=== PATIENT | female | born 1975 | race Caucasian/White ===

== ENCOUNTER 2018-03-03 20:31 | Emergency (ER) | payer OTHER ==
--- NOTE | 2018-03-03 20:46 | ED ---
Extremity Problem HPI - General Chief complaint: Extremity Problem,Nontraumatic Stated complaint: left leg swelling Time Seen by Provider: 03/03/18 20:38 Source: patient Mode of arrival: ambulatory Limitations: no limitations - History of Present Illness Initial comments: 42-year-old female patient presents to the emergency department today for evaluation of left lower extremity swelling and tingling. Patient states that symptoms started last night. Patient denies any known injury to the leg. Denies any pain. She denies any recent car rides or trips. Denies any use of oral contraceptives. States that her mother does have a history of blood clots in her legs. Patient denies any recent rash, fever, chills, shortness breath, chest pain, palpitations, abdominal pain, nausea, vomiting, diarrhea, constipation, back pain, numbness, tingling, dizziness, weakness, hematuria, dysuria, urinary urgency, urinary frequency, headache, visual changes, or any other complaints. - Related Data Home Medications Medication Instructions Recorded Confirmed Ibuprofen [Motrin] 800 mg PO TID PRN 03/03/18 03/03/18 Previous Rx's Medication Instructions Recorded Albuterol Inhaler [Ventolin Hfa 1 - 2 puff INHALATION Q4-6H PRN #1 05/05/15 Inhaler] inhaler Allergies Allergy/AdvReac Type Severity Reaction Status Date / Time No Known Allergies Allergy Verified 03/03/18 21:22 Review of Systems ROS Statement: Those systems with pertinent positive or pertinent negative responses have been documented in the HPI. ROS Other: All systems not noted in ROS Statement are negative. Past Medical History Past Medical History: No Reported History History of Any Multi-Drug Resistant Organisms: None Reported Past Surgical History: No Surgical Hx Reported Past Psychological History: No Psychological Hx Reported Smoking Status: Current every day smoker Past Alcohol Use History: Rare Past Drug Use History: None Reported General Exam Limitations: no limitations General appearance: alert, in no apparent distress Eye exam: Present: normal appearance, PERRL, EOMI. Absent: scleral icterus, conjunctival injection, periorbital swelling ENT exam: Present: normal exam, normal oropharynx, mucous membranes moist Extremities exam: Present: normal inspection, full ROM, normal capillary refill , other (Left lower extremity is pink, warm, and dry. Cap refills less than 3 seconds. Pedal and posttibial pulses 2+ and equal bilaterally. Patient may have a slight swelling to the left leg, nonpitting.). Absent: tenderness, pedal edema, joint swelling, calf tenderness Course Vital Signs 03/03/18 20:32 Temperature 97.4 F L Pulse Rate 89 Respiratory 20 Rate Blood Pressure 174/95 O2 Sat by Pulse 98 Oximetry Medical Decision Making - Medical Decision Making 42-year-old female patient presented to the emergency department today for evaluation of left lower extremity swelling and tingling. Physical examination was unremarkable. Patient had good distal pulses and neurovascular status was intact. Ultrasound of the left lower trauma he was obtained and showed no evidence for DVT. Did discuss findings with the patient. She does have an MRI of the leg scheduled by her orthopedic physician. Return parameters discussed in detail. She verbalizes understanding and agreed with this plan. - Radiology Data Radiology results: report reviewed, image reviewed Ultrasound of the left lower extremity was obtained. Report was reviewed in its entirety. Impression by Dr. Shanel Jama shows negative for DVT, left lower extremity. Disposition Clinical Impression: Left leg swelling Disposition: HOME SELF-CARE Condition: Good Instructions: Leg Edema (ED) Is patient prescribed a controlled substance at d/c from ED?: No Referrals: Cristian Andrew MD [Primary Care Provider] - 1-2 days Time of Disposition: 22:32
--- NOTE | 2018-03-03 22:25 | US ---
EXAMINATION TYPE: US venous doppler duplex LE LT DATE OF EXAM: 03/03/2018 10:10 PM COMPARISON: US 2016 CLINICAL HISTORY: Pain. Left leg pain and tingling SIDE PERFORMED: Left TECHNIQUE: The lower extremity deep venous system is examined utilizing real time linear array sonog lucas with graded compression, doppler sonography and color-flow sonography. VESSELS IMAGED: External Iliac Vein (EIV) Common Femoral Vein Deep Femoral Vein Greater Saphenous Vein * Femoral Vein Popliteal Vein Small Saphenous Vein * Proximal Calf Veins (* superficial vessels) FINDINGS: Grayscale, color doppler, spectral doppler imaging performed of the deep veins of the lowe r extremities. There is normal flow, compressibility, vascular waveforms. IMPRESSION: NEGATIVE FOR DVT, LEFT LOWER EXTREMITY.
[2018-03-03 22:42] VITALS: BP 168/108; PULSE 73; RESP 18; TEMP 98
== END 2018-03-03 22:42 | disposition home or self-care (01) ==
LOC: EC 20:31
DX: M79.89 Other specified soft tissue disorders (principal); R20.2 Paresthesia of skin; F17.200 Nicotine dependence, unspecified, uncomplicated
CPT/HCPCS: 99283

== ENCOUNTER 2018-05-02 08:57 | Emergency (ER) | payer OTHER ==
--- NOTE | 2018-05-02 09:16 | ED ---
General Adult HPI - General Chief complaint: Extremity Problem,Nontraumatic Stated complaint: lump on rt leg Time Seen by Provider: 05/02/18 09:11 Source: patient, RN notes reviewed Mode of arrival: ambulatory Limitations: no limitations - History of Present Illness Initial comments: Patient for 43-year-old female presented to the emergency room today with a chief complaint of right leg pain that she noticed this morning after getting out of the shower. She states that there is an area to the medial aspect of the right calf that is warm. She does admit that she's had a blood clot in a varicose vein in the past. She states there is local tenderness. Denies any injury. Denies any other complaints or symptoms. Patient denies any recent fever, chills, shortness of breath, chest pain, back pain, abdominal pain, nausea or vomiting, numbness or tingling, headaches or visual changes, or any other complaints. - Related Data Home Medications Medication Instructions Recorded Confirmed Ibuprofen [Motrin] 800 mg PO TID PRN 03/03/18 05/02/18 Allergies Allergy/AdvReac Type Severity Reaction Status Date / Time No Known Allergies Allergy Verified 05/02/18 10:14 Review of Systems ROS Statement: Those systems with pertinent positive or pertinent negative responses have been documented in the HPI. ROS Other: All systems not noted in ROS Statement are negative. Past Medical History Past Medical History: No Reported History History of Any Multi-Drug Resistant Organisms: None Reported Past Surgical History: No Surgical Hx Reported Past Psychological History: No Psychological Hx Reported Smoking Status: Current every day smoker Past Alcohol Use History: Rare Past Drug Use History: None Reported General Exam - General Exam Comments Initial Comments: General: The patient is awake and alert, in no distress, and does not appear acutely ill. Neck: The neck is supple, there is no tenderness or JVD. Cardiovascular: There is a regular rate and rhythm. No murmur, rub or gallop is appreciated. Respiratory: Lungs are clear to auscultation, respirations are non-labored, breath sounds are equal. No wheezes, stridor, rales, or rhonchi. Musculoskeletal: Mild redness to the medial aspect of the right calf. Patient shows full range of motion. Sensations intact. Pulses equal bilaterally 2+. Strength 5/5. Neurological: A&O x 3. CN II-XII intact, There are no obvious motor or sensory deficits. Coordination appears grossly intact. Speech is normal. Skin: Mild tenderness to the right calf with warmth. Normal conjunctivae streaking. Psychiatric: Normal mood and affect. Limitations: no limitations Course Vital Signs 05/02/18 09:06 Temperature 97.9 F Pulse Rate 77 Respiratory 18 Rate Blood Pressure 156/78 O2 Sat by Pulse 97 Oximetry Medical Decision Making - Medical Decision Making Patient's ultrasound reviewed and is negative for any evidence of a DVT. There is evidence for superficial venous thrombosis. Results were discussed with the patient. Patient was warm compresses and anti-inflammatories. Advised following up with family physician returning for any other concerns. Disposition Clinical Impression: Superficial vein thrombosis Disposition: HOME SELF-CARE Condition: Good Instructions: Superficial Thrombophlebitis (ED) Additional Instructions: Please use warm compresses to the affected area in and I'm Profen for pain as needed. Please follow family doctor or return here to the emergency room for any other concerns. Is patient prescribed a controlled substance at d/c from ED?: No Referrals: Cristian Andrew MD [Primary Care Provider] - 1-2 days Time of Disposition: 10:26
--- NOTE | 2018-05-02 10:12 | US ---
EXAMINATION TYPE: US venous doppler duplex LE RT DATE OF EXAM: 05/02/2018 9:44 AM COMPARISON: NONE CLINICAL HISTORY: Right lower chimney swelling and pain. SIDE PERFORMED: Right TECHNIQUE: The lower extremity deep venous system is examined utilizing real time linear array sonog lucas with graded compression, doppler sonography and color-flow sonography. VESSELS IMAGED: External Iliac Vein (EIV) Common Femoral Vein Deep Femoral Vein Greater Saphenous Vein * Femoral Vein Popliteal Vein Small Saphenous Vein * Proximal Calf Veins (* superficial vessels) Grayscale, color doppler, spectral doppler imaging performed of the deep veins of the right lower ext remity. There is normal flow, compressibility, vascular waveforms. Right Leg: Negative for DVT At patients upper calf at redness is some superficial thrombophlebitis with noncompression of multipl e superficial vessels in surrounding edema. IMPRESSION: 1. No evidence of deep venous thrombosis within the right lower extremity. 2. At the area the patient's right lower extremity redness and pain there is evidence of superficial venous thrombosis within multiple superficial vessels with surrounding mild edema.
[2018-05-02 10:55] VITALS: BP 164/83; PULSE 68; RESP 20; TEMP 97.3
== END 2018-05-02 10:55 | disposition home or self-care (01) ==
LOC: EC 08:57
DX: I82.811 Embolism and thrombosis of superficial veins of right lower extremity (principal); F17.200 Nicotine dependence, unspecified, uncomplicated
CPT/HCPCS: 99283

== ENCOUNTER 2018-05-05 10:10 | Emergency (ER) | payer OTHER ==
[2018-05-05 10:22] VITALS: RESP 18
--- NOTE | 2018-05-05 10:22 | ED ---
General Adult HPI - General Chief complaint: Extremity Problem,Nontraumatic Stated complaint: left hip and leg pain Time Seen by Provider: 05/05/18 10:22 Source: patient Mode of arrival: wheelchair Limitations: no limitations - History of Present Illness Initial comments: Vidhya Glover is an obese 43-year-old female who presents to the emergency department today for evaluation of sciatic-like pain. Patient reports that she has had sciatica in the past, she is followed with her primary care physician and had nerve testing which diagnosed her with sciatica approximately urine half ago. She was advised to follow-up with an MRI, however she states she lost her medical insurance and was unable to do so. Patient reports that she's had intermittent sciatic-like pain, however today the pain seems to be worse. Patient was evaluated in our hospital earlier this week for lower extremity edema and noted to have a superficial thrombosis in the right lower extremity. Patient does report that that was causing her some discomfort at the time. She also admits to having stepped off a step at a friend's house over the weekend and landed funny though she did not fall. Patient feels that both of these could contribute to her discomfort. She describes the pain as a burning that radiates from her left buttock through her hip all the way down her leg into her toe. She reports that this pain is similar to previous episodes of sciatica. This pain kept her awake over the course of the night which prompted her to come to the ER today for pain relief. She reports that she took Motrin, varying between 400 to 800 mg 3 times a day for the past couple of days with minimal relief. She does report that she took an old [place] that she had prescribed during the night last night with no improvement in her pain. Patient denies any fevers, chills, nausea, vomiting, chest pain, shortness of breath. She denies any numbness or tingling in the leg. She is able to walk but reports it is uncomfortable. Patient denies any falls or recent trauma. She does admit to taking an awkward step and landing on her left foot but no other significant injuries. - Related Data Home Medications Medication Instructions Recorded Confirmed Ibuprofen [Motrin] 800 mg PO TID PRN 03/03/18 05/05/18 HYDROcodone/APAP 5-325MG [[place] 1 tab PO ONCE PRN 05/05/18 05/05/18 5-325] Allergies Allergy/AdvReac Type Severity Reaction Status Date / Time No Known Allergies Allergy Verified 05/05/18 10:35 Review of Systems ROS Statement: Those systems with pertinent positive or pertinent negative responses have been documented in the HPI. ROS Other: All systems not noted in ROS Statement are negative. Constitutional: Denies: fever Respiratory: Denies: cough Cardiovascular: Reports: edema. Denies: chest pain Endocrine: Denies: fatigue Gastrointestinal: Denies: abdominal pain, nausea, vomiting Musculoskeletal: Reports: myalgia Skin: Denies: rash Neurological: Reports: abnormal gait (antalgic). Denies: headache, weakness, numbness, paresthesias Psychiatric: Denies: anxiety, depression Hematological/Lymphatic: Denies: easy bleeding, easy bruising Past Medical History Past Medical History: No Reported History History of Any Multi-Drug Resistant Organisms: None Reported Past Surgical History: No Surgical Hx Reported Past Psychological History: No Psychological Hx Reported Smoking Status: Current every day smoker Past Alcohol Use History: Rare Past Drug Use History: None Reported General Exam Limitations: no limitations General appearance: alert, in no apparent distress Head exam: Present: atraumatic, normocephalic Eye exam: Present: normal appearance, PERRL ENT exam: Present: normal exam Respiratory exam: Absent: respiratory distress Cardiovascular Exam: Present: regular rate GI/Abdominal exam: Present: soft. Absent: distended Rectal exam: Present: deferred Extremities exam: Present: full ROM, normal capillary refill, pedal edema, other (Significant varicosities on bilateral lower extremities, full range of motion, neurovascularly intact, worsening pain with straight leg raise.). Absent: calf tenderness Back exam: Present: normal inspection, full ROM. Absent: tenderness, CVA tenderness (R), CVA tenderness (L), muscle spasm, paraspinal tenderness, vertebral tenderness, rash noted Neurological exam: Present: alert, oriented X3 Psychiatric exam: Present: normal affect Skin exam: Present: warm, dry Course Vital Signs 05/05/18 10:15 Temperature 97.9 F Pulse Rate 62 Respiratory 18 Rate Blood Pressure 150/77 O2 Sat by Pulse 98 Oximetry Medical Decision Making - Medical Decision Making The patient was seen and evaluated, history was obtained from the patient as well as review of medical record She with a history of sciatica having sciatic-like pain radiating down the left leg, patient expresses concern that she does not have medical insurance and therefore will have difficulty following up with her primary care obtaining the MRI she was advised to get over one year ago Physical exam is consistent with sciatic-like pain, pain is worse with straight leg raise, she has no traumatic injuries. No risk factors for pathological fractures. Will treat with Toradol and advised the patient on exercises for sciatica. During her previous ER visit patient met with social work who is assisting her in establishing medical insurance so she can follow-up. At this time I feel the patient is stable for discharge home. I advised the patient to continue taking 800 mg of Motrin 3 times a day and perform stretches which will be given to her with her discharge paperwork. All questions pertaining to care were answered the best my ability the patient was discharged home in stable condition. Disposition Clinical Impression: Superficial vein thrombosis, Sciatic leg pain Disposition: HOME SELF-CARE Condition: Good Instructions: Sciatica (ED), Piriformis Syndrome (ED), Lower Back Exercises (ED ), Lumbar Radiculopathy (ED) Is patient prescribed a controlled substance at d/c from ED?: No Referrals: Cristian Andrew MD [Primary Care Provider] - 1-2 days Time of Disposition: 10:53
[2018-05-05] MEDS ORDERED: KETOROLAC 30 MG/ML 1 ML VIAL IM STA (10:46)
[2018-05-05 11:23] VITALS: BP 162/93; PULSE 70; TEMP 98.2
== END 2018-05-05 11:24 | disposition home or self-care (01) ==
LOC: EC 10:10
DX: I82.812 Embolism and thrombosis of superficial veins of left lower extremity (principal); M54.32 Sciatica, left side; I83.893 Varicose veins of bilateral lower extremities with other complications; E66.9 Obesity, unspecified; F17.200 Nicotine dependence, unspecified, uncomplicated; Z68.41 Body mass index [BMI] 40.0-44.9, adult
CPT/HCPCS: 99283 ×2; 96372 ×2; J1885

== ENCOUNTER 2019-04-02 19:15 | Emergency (ER) | payer OTHER ==
[2019-04-02 19:20] VITALS: BP 156/81; PULSE 89; RESP 20; TEMP 98.3
--- NOTE | 2019-04-02 21:03 | ED ---
General Adult HPI - General Chief complaint: Skin/Abscess/Foreign Body Stated complaint: Cellulitis Time Seen by Provider: 04/02/19 19:24 Source: patient Mode of arrival: ambulatory Limitations: no limitations - History of Present Illness Initial comments: Patient reportedly lesion M1 to emergency on Wednesday decision was trying and packed. Patient started Bactrim . Patient reports the lesion is improved. Patient reports pain on the cath they took an ultrasound for DVT and it was negative. Patient had repacking done at the [facility] on Wednesday. Patient is coming in for repacking. Lesion was repacked without extra. Patient will also be placed on time course of Keflex. - Related Data Home Medications Medication Instructions Recorded Confirmed Ibuprofen [Motrin] 800 mg PO TID PRN 03/03/18 05/05/18 Sulfamethox-Tmp 800-160Mg [Bactrim 1 tab PO Q12HR 04/02/19 04/02/19 DS 800-160 mg] Previous Rx's Medication Instructions Recorded Cephalexin [Keflex] 500 mg PO Q6HR #40 cap 04/02/19 Allergies Allergy/AdvReac Type Severity Reaction Status Date / Time No Known Allergies Allergy Verified 05/05/18 10:35 Review of Systems ROS Statement: Those systems with pertinent positive or pertinent negative responses have been documented in the HPI. ROS Other: All systems not noted in ROS Statement are negative. Past Medical History Past Medical History: No Reported History History of Any Multi-Drug Resistant Organisms: None Reported Past Surgical History: No Surgical Hx Reported Past Psychological History: No Psychological Hx Reported Smoking Status: Current every day smoker Past Alcohol Use History: None Reported Past Drug Use History: None Reported General Exam Limitations: no limitations Course Vital Signs 04/02/19 19:17 Temperature 98.3 F Pulse Rate 89 Respiratory 20 Rate Blood Pressure 156/81 O2 Sat by Pulse 97 Oximetry Disposition Clinical Impression: Cellulitis and abscess of left leg Disposition: HOME SELF-CARE Condition: Stable Instructions (If sedation given, give patient instructions): Acute Wounds (DC) Additional Instructions: Please take prescribed medication as directed. Please follow up with primary care or wound care clinic for repeat packing every 2 days. Please return to emergency department if symptoms worsen. Prescriptions: Cephalexin [Keflex] 500 mg PO Q6HR #40 cap Is patient prescribed a controlled substance at d/c from ED?: No Referrals: Cristian Andrew MD [Primary Care Provider] - 1-2 days Time of Disposition: 21:03
== END 2019-04-02 21:00 | disposition home or self-care (01) ==
LOC: EC 19:15
DX: L03.116 Cellulitis of left lower limb (principal); L02.416 Cutaneous abscess of left lower limb; F17.200 Nicotine dependence, unspecified, uncomplicated
CPT/HCPCS: 99282

== ENCOUNTER 2021-12-28 06:18 | Emergency (ER) | payer BC ==
[2021-12-28 06:35] VITALS: BP 157/83; PULSE 73; RESP 18; TEMP 98.1
[2021-12-28] MEDS ORDERED: diphenhydrAMINE 50 MG/ML 1 ML VIAL IVP STA (06:51)
[2021-12-28] MEDS ORDERED: KETOROLAC 15 MG/ML 1 ML VIAL IVP STA (06:51)
[2021-12-28] MEDS ORDERED: DEXAMETHASONE SOD PHOSPHATE 10 MG/ML 1 ML VIAL IV STA (06:51)
[2021-12-28] MEDS ORDERED: SODIUM CHLORIDE 0.9% 1,000 ML IV STA (06:51)
[2021-12-28] MEDS ORDERED: METOCLOPRAMIDE 5 MG/ML 2 ML VIAL IVP STA (06:51)
[2021-12-28] MEDS ORDERED: PROCHLORPERAZINE INJ 10 MG/2 ML VIAL IM STA (06:55)
--- NOTE | 2021-12-28 07:04 | ED ---
General Adult HPI - General Chief complaint: Headache Stated complaint: headache Time Seen by Provider: 12/28/21 06:38 Source: patient Mode of arrival: ambulatory Limitations: no limitations - History of Present Illness Initial comments: This 46-year-old female past medical history of hypertension and migraine headaches presents emergency Department with migraine headache that began at 11:00 PM last night. Patient states she has a history of migraine headaches for the last 5-10 years and states this is the same as her usual headaches. Patient states she gets these headaches about every 2-3 months. Patient states he does see a neurologist, however she is not on a daily medication for these migraines. Patient states that her headache began very mild last night and has had a slow progression throughout the night. Patient states she did try to take some ibuprofen at home which did help little bit, however it did not completely stop the migraine like it usually does. Patient states her headache is bilateral and states today it is 8/10 pain. Patient denies any vomiting or visual changes. Patient denies this migraine headache coming out of no where or being 10/10 in pain or anything out of the usual compared to her other headaches. Patient describes the pain is dull and aching. Patient states the light does mildly increase her pain. She denies any aura, visual changes or or noises increasing her pain. Patient denies any chest pain, shortness of breath, abdominal pain, hemoptysis, change in bowel or bladder, change in appetite, change in vision, neck pain, back pain, fever, rash. - Related Data Home Medications Medication Instructions Recorded Confirmed Ibuprofen [Motrin] 800 mg PO TID PRN 03/03/18 05/05/18 Sulfamethox-Tmp 800-160Mg [Bactrim 1 tab PO Q12HR 04/02/19 04/02/19 DS 800-160 mg] Previous Rx's Medication Instructions Recorded Cephalexin [Keflex] 500 mg PO Q6HR #40 cap 04/02/19 Allergies Allergy/AdvReac Type Severity Reaction Status Date / Time No Known Allergies Allergy Verified 12/28/21 06:35 Review of Systems ROS Statement: Those systems with pertinent positive or pertinent negative responses have been documented in the HPI. ROS Other: All systems not noted in ROS Statement are negative. Past Medical History Past Medical History: Hypertension History of Any Multi-Drug Resistant Organisms: None Reported Past Surgical History: No Surgical Hx Reported Past Psychological History: No Psychological Hx Reported Smoking Status: Current every day smoker Past Alcohol Use History: None Reported Past Drug Use History: None Reported General Exam Limitations: no limitations General appearance: alert, in no apparent distress Head exam: Present: atraumatic, normocephalic, normal inspection Eye exam: Present: normal appearance, PERRL, EOMI. Absent: scleral icterus, conjunctival injection, periorbital swelling, periorbital tenderness Pupils: Present: normal accommodation ENT exam: Present: normal exam, mucous membranes moist Neck exam: Present: normal inspection, full ROM. Absent: tenderness, meningismus, lymphadenopathy Respiratory exam: Present: normal lung sounds bilaterally. Absent: respiratory distress, wheezes, rales, rhonchi, stridor, chest wall tenderness, accessory muscle use Cardiovascular Exam: Present: regular rate, normal rhythm, normal heart sounds. Absent: systolic murmur, diastolic murmur, rubs, gallop, clicks GI/Abdominal exam: Present: soft, normal bowel sounds. Absent: distended, tenderness, guarding, rebound, rigid Extremities exam: Present: normal inspection, full ROM, normal capillary refill. Absent: tenderness, pedal edema, joint swelling, calf tenderness Back exam: Present: normal inspection, full ROM. Absent: CVA tenderness (R), CVA tenderness (L), paraspinal tenderness, vertebral tenderness Neurological exam: Present: alert, oriented X3, CN II-XII intact, normal gait Psychiatric exam: Present: normal affect, normal mood Skin exam: Present: warm, dry, intact, normal color. Absent: rash Course Vital Signs 12/28/21 06:34 Temperature 98.1 F Pulse Rate 73 Respiratory 18 Rate Blood Pressure 157/83 O2 Sat by Pulse 95 Oximetry - Reevaluation(s) Reevaluation #1: 12/28/21 07:18 On reevaluation patient, she states her pain is went from an 8 to a 5 out of 10. Patient requesting water and blanket. When asking patient about her blood pressure, she states she has not yet taken her losartan this morning. 12/28/21 07:43 On reevaluation of patient, patient states her pain is 0/10. She states she feels all better and does feels a little bit tired due to not getting much sleep last night. Patient currently denying any symptoms and requesting to go home. I did review strict return precautions with patient who agreed to the plan. Medical Decision Making - Medical Decision Making This 46-year-old female presents emergency Department with migraine headache that began at 11 PM last night. After receiving fluids, Compazine, Toradol, Benadryl and Decadron, patient states her pain went from 8/10 to 0/10. Prior to discharge patient has no symptoms. Patient sent home to follow up with her primary care and neurologist in next 1-2 days. I did instruct patient to take her losartan as she does every morning when she gets home. Strict return precautions were discussed. Patient verbally agreed to plan. Patient sent home in stable condition. Case discussed with my attending, . Disposition Clinical Impression: Migraine headache without aura Disposition: HOME SELF-CARE Condition: Stable Instructions (If sedation given, give patient instructions): Migraine Headache (ED) Additional Instructions: Please return to the emergency department with any new, worsening, or concerning symptoms. Follow-up with your primary care physician or neurologist in next 1- 2 days. Is patient prescribed a controlled substance at d/c from ED?: No Referrals: Cristian Andrew MD [Primary Care Provider] - 1-2 days Time of Disposition: 07:51
== END 2021-12-28 08:11 | disposition home or self-care (01) ==
LOC: EC 06:18
DX: G43.009 Migraine without aura, not intractable, without status migrainosus (principal); I10 Essential (primary) hypertension; F17.200 Nicotine dependence, unspecified, uncomplicated
CPT/HCPCS: 99283; 96374; 96375; 96361; 96372; J1200; J0780; J1100; J1885

== ENCOUNTER 2022-08-18 17:24 | Emergency (ER) | payer BC ==
[2022-08-18] MEDS ORDERED: CYCLOBENZAPRINE 10 MG TAB PO STA (19:37)
[2022-08-18] MEDS ORDERED: methylPREDNISolone SOD SUCCI 125 MG/2 ML VIAL IM ONE (19:37)
[2022-08-18] MEDS ORDERED: KETOROLAC 15 MG/ML 1 ML VIAL IM STA (19:37)
[2022-08-18] MEDS ORDERED: LIDOCAINE 5% PATCH TOPICAL SCH (20:00)
--- NOTE | 2022-08-18 20:54 | ED ---
Back Pain HPI - General Chief Complaint: Back Pain/Injury Stated Complaint: back pain, possible pulled muscle Time Seen by Provider: 08/18/22 19:30 Source: patient Limitations: no limitations - History of Present Illness Initial Comments: Patient is a 47-year-old female who presents to the emergency department with a chief complaint of back pain. Patient thinks she pulled a muscle while raking leaves a couple days ago. She reports pain in her right lower back with radiation down the front of the right thigh. Twisting and bending of her back makes the pain worse. Taking Motrin with little relief. She reports tingling down the front of her right thigh. Denies numbness and leg weakness. Denies numbness and tingling in the groin and buttock region. Denies loss of bowel and bladder function. Denies burning with urination, blood in the urine, increased urinary frequency and urgency. - Related Data Home Medications Medication Instructions Recorded Confirmed Ibuprofen [Motrin] 800 mg PO TID PRN 03/03/18 05/05/18 Sulfamethox-Tmp 800-160Mg [Bactrim 1 tab PO Q12HR 04/02/19 04/02/19 DS 800-160 mg] Previous Rx's Medication Instructions Recorded Cephalexin [Keflex] 500 mg PO Q6HR #40 cap 04/02/19 Cyclobenzaprine [Flexeril] 5 mg PO HS PRN #7 tablet 08/18/22 predniSONE 50 mg PO DAILY #5 tab 08/18/22 Allergies Allergy/AdvReac Type Severity Reaction Status Date / Time No Known Allergies Allergy Verified 08/18/22 18:01 Review of Systems ROS Statement: Those systems with pertinent positive or pertinent negative responses have been documented in the HPI. ROS Other: All systems not noted in ROS Statement are negative. Past Medical History Past Medical History: Asthma, Hypertension History of Any Multi-Drug Resistant Organisms: None Reported Past Surgical History: No Surgical Hx Reported Past Psychological History: No Psychological Hx Reported Smoking Status: Current every day smoker Past Alcohol Use History: None Reported Past Drug Use History: None Reported General Exam Limitations: no limitations General appearance: alert, in no apparent distress Respiratory exam: Present: normal lung sounds bilaterally. Absent: respiratory distress, wheezes, rales, rhonchi, stridor Cardiovascular Exam: Present: regular rate, normal rhythm, normal heart sounds. Absent: systolic murmur, diastolic murmur, rubs, gallop, clicks Back exam: Present: normal inspection, full ROM, paraspinal tenderness (right lumbar). Absent: vertebral tenderness Neurological exam: Present: alert, oriented X3, CN II-XII intact Psychiatric exam: Present: normal affect, normal mood Skin exam: Present: warm, dry, intact, normal color. Absent: rash Course Vital Signs 08/18/22 08/18/22 17:59 21:02 Temperature 97.9 F 98.6 F Pulse Rate 76 62 Respiratory 20 17 Rate Blood Pressure 137/86 165/71 O2 Sat by Pulse 96 96 Oximetry Medical Decision Making - Medical Decision Making This is a 47-year-old female presenting with back pain. Presentation and physical exam are consistent with musculoskeletal injury. No signs or symptoms of cauda equina. Patient given symptomatic treatment in the emergency department with significant relief. I do feel the patient will benefit from prednisone prescription given her radicular symptoms. Patient discharged with treatment for MSK pain with radiculopathy. Dr. Escobedo is my attending. Disposition Clinical Impression: Mechanical back pain, Radiculopathy Disposition: HOME SELF-CARE Condition: Good Instructions (If sedation given, give patient instructions): Acute Low Back Pain (ED), Lumbar Radiculopathy (ED) Additional Instructions: Take medication as directed. Do not drink alcohol or operate machinery while taking Flexeril as it can make you sleepy. Start prednisone prescription tomorrow. Take your home prescription of Motrin for pain. Follow-up with primary care provider in one to 2 days. Return to the emergency department experience new, concerning, or worsening symptoms. Prescriptions: Cyclobenzaprine [Flexeril] 5 mg PO HS PRN #7 tablet PRN Reason: Muscle Spasm predniSONE 50 mg PO DAILY #5 tab Is patient prescribed a controlled substance at d/c from ED?: No Referrals: Cristian Andrew MD [Primary Care Provider] - 1-2 days Time of Disposition: 20:54
[2022-08-18 21:03] VITALS: BP 165/71; PULSE 62; RESP 17; TEMP 98.6
== END 2022-08-18 21:03 | disposition home or self-care (01) ==
LOC: EC 17:24
DX: M54.10 Radiculopathy, site unspecified (principal); I10 Essential (primary) hypertension; J45.909 Unspecified asthma, uncomplicated; F17.200 Nicotine dependence, unspecified, uncomplicated; Z79.899 Other long term (current) drug therapy
CPT/HCPCS: 99283; 96372 ×2; J2930; J1885